=== PATIENT | female | born 1940 | race Hispanic/Latino ===

== ENCOUNTER → 2017-12-08 | Outpatient (CLI) | payer MEDICARE ==
[~2017-12-08] MED LIST: ALEN70TA47 PO; BRIM5DRO OU; CHOL200012 PO; FURO40TA5 PO; GLIM4TAB3 PO; LACT1CAP78 PO; METO-391 PO; PANT40TA25 PO; SITA100T12 PO; SPIR25TA4 PO; TACR0.5C7 PO
== END | disposition home or self-care (01) ==
LOC: RAH 08:18
PROVIDERS: ATTEND Internal Medicine Hepatology
DX: Z94.4 Liver transplant status (principal); Z90.49 Acquired absence of other specified parts of digestive tract
CPT/HCPCS: 76705

== ENCOUNTER → 2018-10-08 | Outpatient (CLI) | payer MEDICARE ==
[~2018-10-08] MED LIST changes: -SPIR25TA4 PO; +SPIR25TA6 PO
== END | disposition home or self-care (01) ==
LOC: RAH 07:34
PROVIDERS: ATTEND Internal Medicine Hepatology
DX: Z94.4 Liver transplant status (principal)
CPT/HCPCS: 76705; 93975

== ENCOUNTER → 2020-08-28 | Outpatient (CLI) | payer MEDICARE, OTHER ==
[~2020-08-28] MED LIST changes: +ALEN70TA10 PO; -ALEN70TA47 PO; -GLIM4TAB3 PO; +GLIM4TAB36 PO; -PANT40TA25 PO; +PANT40TA54 PO
== END | disposition home or self-care (01) ==
LOC: RAH 09:29
PROVIDERS: ATTEND Internal Medicine Transplant Hepatology
DX: Z41.8 Encounter for other procedures for purposes other than remedying health state (principal); Z94.4 Liver transplant status
CPT/HCPCS: 76700; 93975

== ENCOUNTER → 2020-09-20 | Outpatient (CLI) | payer OTHER ==
[~2020-09-20] MED LIST changes: -ALEN70TA10 PO; +ALEN70TA69 PO
[2020-09-20 16:04] LABS: CREATININE 1.2 mg/dL (0.5-1.5)
== END | disposition home or self-care (01) ==
LOC: LAB 15:02
PROVIDERS: ATTEND Internal Medicine Transplant Hepatology
DX: K74.69 Other cirrhosis of liver (principal); K74.00 Hepatic fibrosis, unspecified; Z41.8 Encounter for other procedures for purposes other than remedying health state; Z94.4 Liver transplant status
CPT/HCPCS: 36415; 82565; 84520

== ENCOUNTER → 2020-10-02 | Outpatient (CLI) | payer OTHER ==
[~2020-10-02] MED LIST changes: +IOHEXOL-350 75 ML VIAL IV ONE
== END | disposition home or self-care (01) ==
LOC: RAH 07:45
PROVIDERS: ATTEND Internal Medicine Transplant Hepatology
DX: K43.9 Ventral hernia without obstruction or gangrene (principal); K74.00 Hepatic fibrosis, unspecified; K74.69 Other cirrhosis of liver; Z94.4 Liver transplant status; Z41.8 Encounter for other procedures for purposes other than remedying health state
CPT/HCPCS: 74170; Q9967

== ENCOUNTER 2021-01-22 10:07 | Observation (INO) | payer OTHER ==
[~2021-01-22] VITALS: Ht 157.5 cm; Wt 71.2 kg
[~2021-01-22 10:07] MED LIST changes: -ALEN70TA69 PO; +ALEN70TA80 PO; -IOHEXOL-350 75 ML VIAL IV ONE
[2021-01-22 10:31] LABS: BASOPHILS % (AUTO) 0.4 % (0.0-5.0); EOSINOPHILS % (AUTO) 2.5 % (0.0-8.0); HEMATOCRIT 39.9 % (36-48); LYMPHOCYTES % (AUTO) 41.2 % (21.0-51.0); MEAN CORPUSCULAR HEMOGLOBIN 31.9 pg (27.0-33.0); MEAN CORPUSCULAR HGB CONC 33.3 g/dL (32.0-36.0); MEAN CORPUSCULAR VOLUME 95.7 fL (79-99); MONOCYTES % (AUTO) 6.6 % (3.0-13.0); NEUTROPHILS % (AUTO) 48.9 % (40.0-77.0); PLATELET COUNT (AUTO) 293 K/uL (130-400); RED BLOOD CELL COUNT(AUTO) 4.17 MIL/uL (4.00-5.50); RED CELL DISTRIBUTION WIDTH 13.2 % (11.0-15.5); WHITE BLOOD COUNT (AUTO) 6.9 K/uL (4.8-10.8)
[2021-01-22 10:41] LABS: ALBUMIN 3.5 g/dL (3.5-5.0); BILIRUBIN,TOTAL 0.5 mg/dL (0.2-1.0); CREATININE 1.3 mg/dL (0.5-1.5); INR 1.01 (0.85-1.15); POTASSIUM 3.9 mmol/L (3.5-5.1); TOTAL PROTEIN, SERUM 7.2 g/dL (6.0-8.3)
[2021-01-22 10:43] LABS: PARTIAL THROMBOPLASTIN TIME 24.2 SEC (26.3-35.5)
[2021-01-22] MEDS ORDERED: MAGNESIUM 2GM PREMIX 50ML 50 ML IV PRN (13:00)
[2021-01-22] MEDS ORDERED: DEXTROSE 50%-WATER 50 ML DISP.SYRIN IV PRN (13:00)
[2021-01-22] MEDS ORDERED: POTASSIUM CHLORIDE 20 MEQ ERTAB PO PRN (13:00)
[2021-01-22] MEDS ORDERED: LIDOCAINE HCL-MPF 1% 2ML VIAL IV PRN ×2 (13:00)
[2021-01-22] MEDS ORDERED: POTASSIUM CHLORIDE 10% ELIXIR 20 MEQ/15 ML UDCUP PO PRN (13:00)
[2021-01-22] MEDS ORDERED: ONDANSETRON HCL 4 MG/2 ML VIAL IVP PRN (13:00)
[2021-01-22] MEDS ORDERED: GLUCAGON 1MG KIT 1 MG ML IM PRN (13:00)
[2021-01-22] MEDS ORDERED: POTASSIUM CHLORIDE 20MEQ/100ML 100 ML IV PRN ×2 (13:00)
[2021-01-22] MEDS ORDERED: ENOXAPARIN SODIUM 40 MG/0.4 ML SYRINGE SQ SCH (13:00)
[2021-01-22] MEDS ORDERED: ENOXAPARIN SODIUM 40 MG/0.4 ML SYRINGE SQ ONE (13:56)
[2021-01-22] MEDS ORDERED: PANTOPRAZOLE SODIUM 40 MG TABLET.DR ONE (13:57)
[2021-01-22] MEDS ORDERED: NITROGLYCERIN 1GM/1 INCH PACKET TD ONE (13:57)
[2021-01-22] MEDS ORDERED: IOHEXOL-350 75 ML VIAL IV ONE ×3 (14:23→17:14)
[2021-01-22 16:32] LABS: APPEARANCE,URINE Clear (CLEAR); BILIRUBIN,URINE Negative (NEGATIVE); COLOR,URINE Yellow (YELLOW); GLUCOSE, URINE (UA) Negative (NEGATIVE); KETONES,URINE Negative (NEGATIVE); LEUKOCYTE ESTERASE ,URINE Negative (NEGATIVE); NITRATE,URINE Negative (NEGATIVE); OCCULT BLOOD,URINE Negative (NEGATIVE); PH,URINE 5.5 (5.0-8.0); PROTEIN,URINE Negative (NEGATIVE); UROBILINOGEN,URINE 0.2 mg/dL (0.2-1.0)
[2021-01-22 19:00] VITALS: BP 142/72
[2021-01-22] MEDS: NITROGLYCERIN 1GM/1 INCH PACKET TD SCH (20:57)
[2021-01-23] VITALS: BP 135/58
[2021-01-23 04:00] VITALS: BP 125/61
[2021-01-23] MEDS: NITROGLYCERIN 1GM/1 INCH PACKET TD SCH ×2 (04:26→12:36)
[2021-01-23 08:00] VITALS: BP 110/52
[2021-01-23] MEDS: PANTOPRAZOLE SODIUM 40 MG TABLET.DR PO SCH ×2 (09:00→12:34)
[2021-01-23 11:00] VITALS: BP 102/46
[2021-01-23 16:00] VITALS: BP 147/57
== END 2021-01-23 16:52 | disposition home or self-care (01) ==
LOC: EDH 10:07 → EDHIP 12:51 → INTOOBSV 12:51 → OBSVTOIN 12:51 → 4AH 14:50
PROVIDERS: ADMIT Internal Medicine Critical Care Medicine; ATTEND Internal Medicine Critical Care Medicine
DX: R07.89 Other chest pain (principal); R06.02 Shortness of breath; R79.89 Other specified abnormal findings of blood chemistry; D84.9 Immunodeficiency, unspecified; I20.0 Unstable angina; I10 Essential (primary) hypertension; E11.65 Type 2 diabetes mellitus with hyperglycemia; Z86.16 Personal history of COVID-19; Z94.4 Liver transplant status; Z94.0 Kidney transplant status; Z79.899 Other long term (current) drug therapy; Z88.2 Allergy status to sulfonamides; Z88.5 Allergy status to narcotic agent; Z88.6 Allergy status to analgesic agent
CPT/HCPCS: 36415; 71045; 71275; 80053; 81003; 82550; 82948 ×5; 84484 ×3; 85025; 85378; 85610; 85730; 87040 ×2; 87088; 87804 ×2; 93005; 99285; G0378 ×28; J1650; Q9967 ×2

== ENCOUNTER → 2021-05-23 | Outpatient (CLI) | payer OTHER | END | disposition home or self-care (01) | LOC: RAH 07:50 | PROVIDERS: ATTEND Nurse Practitioner Family | DX: Z41.8 Encounter for other procedures for purposes other than remedying health state (principal); Z94.4 Liver transplant status; K74.00 Hepatic fibrosis, unspecified | CPT/HCPCS: 76700; 93975 ==

== ENCOUNTER → 2022-03-18 | Outpatient (CLI) | payer OTHER ==
[~2022-03-18] MED LIST changes: +IOHEXOL 350 MG/ML 100ML INFUS..BTL IV ONE
== END | disposition home or self-care (01) ==
LOC: OIH 08:44
PROVIDERS: ATTEND Internal Medicine Transplant Hepatology
DX: K74.69 Other cirrhosis of liver (principal); K42.9 Umbilical hernia without obstruction or gangrene; N28.89 Other specified disorders of kidney and ureter; R91.8 Other nonspecific abnormal finding of lung field; Z90.49 Acquired absence of other specified parts of digestive tract; Z41.8 Encounter for other procedures for purposes other than remedying health state; Z94.4 Liver transplant status
CPT/HCPCS: 74170; Q9967

== ENCOUNTER → 2022-10-08 | Outpatient (CLI) | payer OTHER ==
[~2022-10-08] MED LIST changes: -IOHEXOL 350 MG/ML 100ML INFUS..BTL IV ONE
== END | disposition home or self-care (01) ==
LOC: RAH 08:43
PROVIDERS: ATTEND Internal Medicine Transplant Hepatology
DX: K76.0 Fatty (change of) liver, not elsewhere classified (principal); R94.5 Abnormal results of liver function studies; K74.00 Hepatic fibrosis, unspecified
CPT/HCPCS: 76700; 93975

== ENCOUNTER → 2023-03-04 | Outpatient (CLI) | payer OTHER | END | disposition home or self-care (01) | LOC: RAH 09:23 | PROVIDERS: ATTEND Internal Medicine Transplant Hepatology | DX: Z41.8 Encounter for other procedures for purposes other than remedying health state (principal); R94.5 Abnormal results of liver function studies; K74.00 Hepatic fibrosis, unspecified; Z94.4 Liver transplant status; E11.00 Type 2 diabetes mellitus with hyperosmolarity without nonketotic hyperglycemic-hyperosmolar coma (NKHHC); K76.0 Fatty (change of) liver, not elsewhere classified; Z90.49 Acquired absence of other specified parts of digestive tract | CPT/HCPCS: 76700 ==

== ENCOUNTER → 2023-09-03 | Outpatient (CLI) | payer OTHER | END | disposition home or self-care (01) | LOC: RAH 15:47 | PROVIDERS: ATTEND Internal Medicine Transplant Hepatology | DX: R94.5 Abnormal results of liver function studies (principal); N18.9 Chronic kidney disease, unspecified; K74.69 Other cirrhosis of liver; Z41.8 Encounter for other procedures for purposes other than remedying health state; Z90.49 Acquired absence of other specified parts of digestive tract; Z94.4 Liver transplant status | CPT/HCPCS: 76700 ==

== ENCOUNTER 2023-09-17 16:42 | Emergency (ER) | payer OTHER ==
[~2023-09-17] VITALS: Ht 157.5 cm; Wt 69.9 kg
[2023-09-17 18:35] LABS: BASOPHILS # (AUTO) 0.03 K/uL (0.00-0.20); BASOPHILS % (AUTO) 0.4 % (0.0-5.0); EOSINOPHILS # (AUTO) 0.24 K/uL (0.00-0.70); EOSINOPHILS % (AUTO) 3.5 % (0.0-8.0); HEMATOCRIT 38.7 % (36-48); IMMATURE GRANULOCYTE ABSOLUTE 0.03 K/uL (0-1); LYMPHOCYTES # (AUTO) 3.1 K/uL (1.0-4.8); LYMPHOCYTES % (AUTO) 45.1 % (21.0-51.0); MEAN CORPUSCULAR HEMOGLOBIN 32.5 pg (27.0-33.0); MEAN CORPUSCULAR HGB CONC 33.3 g/dL (32.0-36.0); MEAN CORPUSCULAR VOLUME 97.5 fL (79-99); MONOCYTES # (AUTO) 0.5 K/uL (0.1-1.0); MONOCYTES % (AUTO) 7.6 % (3.0-13.0); PLATELET COUNT (AUTO) 260 K/uL (130-400); RED BLOOD CELL COUNT(AUTO) 3.97 MIL/uL (4.00-5.50); RED CELL DISTRIBUTION WIDTH 13.2 % (11.0-15.5); WHITE BLOOD COUNT (AUTO) 6.9 K/uL (4.8-10.8)
[2023-09-17 18:40] LABS: APPEARANCE,URINE CLEAR (CLEAR); BILIRUBIN,URINE NEGATIVE (NEGATIVE); COLOR,URINE LIGHT-YELLOW (YELLOW); GLUCOSE, URINE (UA) NEGATIVE (NEGATIVE); KETONES,URINE NEGATIVE (NEGATIVE); LEUKOCYTE ESTERASE ,URINE 75 Leu/uL (NEGATIVE); NITRATE,URINE NEGATIVE (NEGATIVE); OCCULT BLOOD,URINE NEGATIVE (NEGATIVE); PH,URINE 5.5 (5.0-8.0); PROTEIN,URINE NEGATIVE (NEGATIVE); UROBILINOGEN,URINE 0.2 mg/dL (0.2-1.0)
[2023-09-17 18:42] LABS: ADD UA MICROSCOPIC YES
[2023-09-17 18:44] LABS: RBC,URINE 0-1 /HPF (0-1)
[2023-09-17 19:03] LABS: B-TYPE NATRIURETIC PEPTIDE 86 pg/mL (0-100)
[2023-09-17] MEDS ORDERED: CEFU500T67 PO (19:42)
[2023-09-17] MEDS ORDERED: FAMO-136 PO (19:42)
[2023-09-17] MEDS ORDERED: CEFTRIAXONE 1G VIAL IVPB ONE (20:00)
[2023-09-17 20:35] LABS: ALBUMIN 3.7 g/dL (3.5-5.0); BILIRUBIN,TOTAL 0.2 mg/dL (0.2-1.0); CREATININE 1.2 mg/dL (0.5-1.5); POTASSIUM 4.2 mmol/L (3.5-5.1); TOTAL PROTEIN, SERUM 7.5 g/dL (6.0-8.3)
[2023-09-17 22:28] VITALS: BP 136/56; PULSE 62; RESP 16; O2SAT 98
== END 2023-09-17 22:29 | disposition home or self-care (01) ==
LOC: EDH 16:42
DX: N39.0 Urinary tract infection, site not specified (principal); E11.9 Type 2 diabetes mellitus without complications; E78.00 Pure hypercholesterolemia, unspecified; Z79.621 Long term (current) use of calcineurin inhibitor; Z79.84 Long term (current) use of oral hypoglycemic drugs; Z79.899 Other long term (current) drug therapy; Z88.2 Allergy status to sulfonamides; Z88.5 Allergy status to narcotic agent; Z88.6 Allergy status to analgesic agent; Z90.49 Acquired absence of other specified parts of digestive tract; Z90.710 Acquired absence of both cervix and uterus
CPT/HCPCS: 99285; 74176; 96365; 71045; 96366; 84484; 80053; 83880; 83690; 85025; 87088; 81001; 36415; 93005; J0696

== ENCOUNTER → 2024-02-29 | Outpatient (CLI) | payer OTHER ==
[~2024-02-29] MED LIST changes: +CEFU500T67 PO; +FAMO-136 PO
[2024-02-29 09:46] LABS: BASOPHILS # (AUTO) 0.05 K/uL (0.00-0.20); BASOPHILS % (AUTO) 0.7 % (0.0-5.0); EOSINOPHILS # (AUTO) 0.29 K/uL (0.00-0.70); EOSINOPHILS % (AUTO) 3.9 % (0.0-8.0); HEMATOCRIT 43.6 % (36-48); IMMATURE GRANULOCYTE ABSOLUTE 0.05 K/uL (0-1); LYMPHOCYTES # (AUTO) 3.2 K/uL (1.0-4.8); LYMPHOCYTES % (AUTO) 42.8 % (21.0-51.0); MEAN CORPUSCULAR HEMOGLOBIN 32.1 pg (27.0-33.0); MEAN CORPUSCULAR HGB CONC 32.6 g/dL (32.0-36.0); MEAN CORPUSCULAR VOLUME 98.6 fL (79-99); MONOCYTES # (AUTO) 0.5 K/uL (0.1-1.0); MONOCYTES % (AUTO) 6.1 % (3.0-13.0); NEUTROPHILS # (AUTO) 3.4 K/uL (1.8-7.7); NEUTROPHILS % (AUTO) 45.8 % (40.0-77.0); PLATELET COUNT (AUTO) 343 K/uL (130-400); RED BLOOD CELL COUNT(AUTO) 4.42 MIL/uL (4.00-5.50); RED CELL DISTRIBUTION WIDTH 13.6 % (11.0-15.5); WHITE BLOOD COUNT (AUTO) 7.4 K/uL (4.8-10.8)
[2024-02-29 10:00] LABS: INR <= 0.93 (0.85-1.15); PROTHROMBIN TIME 10.6 SEC (9.6-11.6)
[2024-02-29 10:03] LABS: ALBUMIN 3.9 g/dL (3.5-5.0); BILIRUBIN,TOTAL 0.4 mg/dL (0.2-1.0); CREATININE 1.1 mg/dL (0.5-1.0); MAGNESIUM 1.7 mg/dL (1.80-2.40); POTASSIUM 4.5 mmol/L (3.5-5.1)
== END | disposition home or self-care (01) ==
LOC: LAB 09:03
PROVIDERS: ATTEND Internal Medicine Transplant Hepatology
DX: Z41.8 Encounter for other procedures for purposes other than remedying health state (principal); N18.1 Chronic kidney disease, stage 1; E11.22 Type 2 diabetes mellitus with diabetic chronic kidney disease; R94.5 Abnormal results of liver function studies; K74.00 Hepatic fibrosis, unspecified; Z94.4 Liver transplant status
CPT/HCPCS: 36415; 80053; 80197; 82105; 83735; 85025; 85610

== ENCOUNTER → 2024-03-07 | Outpatient (CLI) | payer OTHER ==
[~2024-03-07] MED LIST changes: +IOHEXOL-350 75 ML VIAL IV ONE
== END | disposition home or self-care (01) ==
LOC: RAH 08:12
PROVIDERS: ATTEND Internal Medicine Transplant Hepatology
DX: R94.5 Abnormal results of liver function studies (principal); N28.1 Cyst of kidney, acquired; M47.815 Spondylosis without myelopathy or radiculopathy, thoracolumbar region; I25.10 Atherosclerotic heart disease of native coronary artery without angina pectoris; M43.16 Spondylolisthesis, lumbar region; E11.22 Type 2 diabetes mellitus with diabetic chronic kidney disease; J98.4 Other disorders of lung; M48.54XA Collapsed vertebra, not elsewhere classified, thoracic region, initial encounter for fracture; N18.9 Chronic kidney disease, unspecified; Z90.49 Acquired absence of other specified parts of digestive tract; Z94.4 Liver transplant status
CPT/HCPCS: 74170; Q9967